=== PATIENT | female | born 1985 | race Caucasian/White ===

== ENCOUNTER → 2022-08-17 16:19 | Outpatient (BNVA) | payer BC, SELFPAY | PROVIDERS: Visit Provider Emergency Medicine | DX: N30.01 Acute cystitis with hematuria (principal) | CPT/HCPCS: 81000 ==

== ENCOUNTER → 2022-08-24 13:15 | Outpatient (BNVA) | payer BC, SELFPAY | PROVIDERS: Visit Provider Nurse Practitioner Family | DX: R10.9 Unspecified abdominal pain (principal); N12 Tubulo-interstitial nephritis, not specified as acute or chronic | CPT/HCPCS: 81000; 87086 ==

== ENCOUNTER → 2023-01-04 16:44 | Outpatient (BNVA) | payer BC, SELFPAY | PROVIDERS: Visit Provider Emergency Medicine | DX: J02.9 Acute pharyngitis, unspecified (principal) | CPT/HCPCS: 87071; 87880 ==

== ENCOUNTER 2023-03-16 17:34 | Emergency (ER) | payer BC, MEDICAID, SELFPAY ==
[2023-03-16 17:45] VITALS: BP 128/76; PULSE 100; RESP 18; TEMP 36.7; O2SAT 99; BMI 25.0
--- NOTE | 2023-03-16 17:52 | XRR_ITS ---
PROCEDURE INFORMATION: Exam: XR Chest Exam date and time: 03/16/2023 6:05 PM Age: 37 years old Clinical indication: Other: Numbness tingling TECHNIQUE: Imaging protocol: Radiologic exam of the chest. Views: 1 view. COMPARISON: No relevant prior studies available. FINDINGS: Lungs: Lungs are clear bilaterally. Pleural spaces: No pleural effusion. No pneumothorax. Heart/Mediastinum: The cardiac silhouette and mediastinal contours are unremarkable. Bones/joints: Unremarkable for age. XR/XR chest 1V portable [id number] IMPRESSION: Negative chest radiograph.
--- NOTE | 2023-03-16 17:52 | CTR_ITS ---
PROCEDURE INFORMATION: Exam: CT Head Without Contrast Exam date and time: 03/16/2023 6:13 PM Age: 37 years old Clinical indication: Numbness / parasthesia; Left; Additional info: Left arm numbness tingling TECHNIQUE: Imaging protocol: Computed tomography of the head without contrast. Sagittal and coronal reformatted images were created and reviewed. Radiation optimization: All CT scans at this facility use at least one of these dose optimization techniques: automated exposure control; mA and/or kV adjustment per patient size (includes targeted exams where dose is matched to clinical indication); or iterative reconstruction. REPORTING DATA: Count of CT and Cardiac NM exams in prior 12 months: This patient has received 0 known CTs and 0 known cardiac nuclear medicine studies in the 12 months prior to the current study. COMPARISON: No relevant prior studies available. RADIATION DOSE METRICS: Total DLP (mGy-cm): 1083.6 FINDINGS: Brain: No acute intracranial hemorrhage. No acute infarct. No intra-axial or extra-axial masses. George-white matter differentiation is preserved. No cerebral edema. No extra-axial fluid collections. No midline shift. No evidence for Chiari 1 malformation. Cerebral ventricles: No hydrocephalus. Paranasal sinuses: Visualized paranasal sinuses are clear. Mastoid air cells: Mastoid air cells are clear bilaterally. Orbital cavities: No acute abnormality in the visualized orbits. Bones/joints: No acute fracture. Soft tissues: The extracranial soft tissues are unremarkable. CT/CT head wo con* [id number] IMPRESSION: Negative CT scan of the brain.
--- NOTE | 2023-03-16 17:53 | ED_ITS ---
HPI - General Adult General: Chief complaint: General Medical Stated complaint: Stroke like symptoms Time Seen by Provider: 03/16/23 17:44 History of Present Illness: Patient presents to the ER from her PCPs office with complaints of left arm numbness and tingling from the shoulder down to the tips of her fingers. Patient stated this started approximately 5 days ago with her hand and fingers and then slowly worked its way up to the elbow and that to the shoulder. Patient reports no change in medicine. Patient does have a history of migraines is on migraine medicine. Patient has no other complaints at this time. Patient is found nothing to make this better or make this worse in the last 5 days. Patient is never had this before. Review of Systems General: Reports: 10 or more systems reviewed and unremarkable except in HPI and below PFSH ED 2 PFSH: Medical History Psychiatric care Physical Exam Const: COMMON NORMALS: no acute distress, average body habitus, patient oriented x3, no limitations, healthy appearing, alert and well nourished HENMT: COMMON NORMALS: normocephalic, atraumatic, hearing grossly normal bilaterally, external ears normal, Normal external nose present and moist oral mucous membranes HEAD & SCALP: normocephalic and atraumatic NOSE: Normal external nose present EXTERNAL EAR: Yes external ears normal Neck/C-Spine: COMMON NORMALS: full ROM, no lymphadenopathy, supple, no meningeal signs, no JVD and Thyroid normal THYROID: Thyroid normal Chest: COMMONS NORMALS: normal inspection of the chest and normal palpation of entire chest wall Resp: COMMON NORMALS: normal respiratory effort, No retractions, No use of accessory muscles and clear to auscultation bilaterally AUSCULTATION: clear to auscultation bilaterally Cardio: COMMON NORMALS: no JVD, regular rate, regular rhythm, S1 normal heart sound present, S2 normal heart sound present, No gallops present (Cardio), No clicks present (Cardio), No murmurs present (Cardio) and No rub (Cardio) RATE: regular rate RHYTHM: regular rhythm HEART SOUNDS: S1 normal heart sound present and S2 normal heart sound present GI: COMMON NORMALS: Normal to inspection, nondistended, normoactive bowel sounds present, Soft to palpation, non-tender, No hepatosplenomegaly present and no masses PALPATION: Yes Soft to palpation and Yes No hepatosplenomegaly present Neuro: COMMON NORMALS: patient oriented x3, CN's II-XII intact bilaterally, moves all extremities and no focal motor deficits SENSORIUM/ORIENTATION: Yes alert MENINGEAL SIGNS: Yes no meningeal signs SENSORY EXAM: Yes other (Patient complains of decreased sensation to her left upper extremity from t) Course Vital Signs: Vital signs: Vital Signs Temperature 98.0 F 03/16/23 17:45 Pulse Rate 88 03/16/23 18:37 Respiratory Rate 16 03/16/23 18:37 Blood Pressure 105/64 03/16/23 18:37 Pulse Oximetry 99 03/16/23 18:37 Oxygen Delivery Me thod Room Air 03/16/23 18:37 MDM - General Adult Medical Decision Making Patient presents to the ER with complaints of worsening numbness and tingling of her left upper extremity over the last 5 days. It started in her fingertips and woke this way up to his shoulder. Patient has never had this before. Patient underwent physical exam and lab work and imaging. All of which was essentially benign. Chest x-ray was negative, head CT was negative and lab work was unremarkable. This is highly unlikely anything to do with vascular occlusion and or stroke. This is most likely a peripheral neuropathy of some sort. Patient will be discharged home to follow-up with her PCP in the next 1 week. P atient may benefit from a referral to a neurologist and/or nerve conduction study. Patient will be placed on prednisone for 5 days. Differential Diagnosis Numbness and tingling, paresthesia, neuropathy, Medical Records I reviewed the patient's medical records. Lab Data I reviewed the patient's lab results. 03/16/23 18:03 03/16/23 18:03 Radiology Impressions Chest X-Ray 03/16/23 17:52 IMPRESSION: Negative chest radiograph. Head CT 03/16/23 17:52 IMPRESSION: Negative CT scan of the brain. Laboratory Results WBC 10.3 10^3/uL (4.0-10.0) H 03/16/23 18:03 RBC 4.82 10^6/uL (4.1-5.3) 03/16/23 18:03 Hgb 15.4 g/dL (11.5-15.3) H 03/16/23 18:03 Hct 45.5 % (37.0-47.0) 03/16/23 18:03 MCV 94.4 fl (81-99) 03/16/23 18:03 MCH 32.0 pg (28.0-34.0) 03/16/23 18:03 MCHC 33.8 g/dL (30.0-36.0) 03/16/23 18:03 RDW 12.4 % (12.1-15.1) 03/16/23 18:03 Plt Count 242 10^3/cmm (130-400) 03/16/23 18:03 MPV 9.2 fL (7.4-10.4) 03/16/23 18:03 Neut % (Auto) 48.4 % 03/16/23 18:03 Lymph % (Auto) 44.2 % 03/16/23 18:03 [place] % (Auto) 5.3 % 03/16/23 18:03 Eos % (Auto) 1.4 % 03/16/23 18:03 Baso % (Auto) 0.4 % 03/16/23 18:03 Neut # (Auto) 4.99 10^3/uL (1.8-7.7) 03/16/23 18:03 Lymph # (Auto) 4.6 10^3/uL (0.8-4.8) 03/16/23 18:03 [place] # (Auto) 0.6 10^3/uL (0.2-0.9) 03/16/23 18:03 Eos # (Auto) 0.1 10^3/uL (0.0-0.8) 03/16/23 18:03 Baso # (Auto) 0.0 10^3/uL (0.0-0.1) 03/16/23 18:03 Nucleated RBC % (auto) 0 % 03/16/23 18:03 Nucleated RBCs # 0.0 /100WBC 03/16/23 18:03 ESR 4 mm/hr (0-15) 03/16/23 18:03 Sodium 140 mmol/L (136-145) 03/16/23 18:03 Potassium 3.7 mmol/L (3.5-5.1) 03/16/23 18:03 Chloride 105 mmol/L (98-107) 03/16/23 18:03 Carbon Dioxide 23 mmol/L (22-29) 03/16/23 18:03 Anion Gap 15.7 (5-19) 03/16/23 18:03 BUN 8 mg/dL (6-20) 03/16/23 18:03 Creatinine 0.5 mg/dL (0.5-0.9) 03/16/23 18:03 GFR Calculation 138.8 mL/min (90-130) H 03/16/23 18:03 Glucose 85 mg/dL (65-115) 03/16/23 18:03 Calculated Osmolality 288 mOsm/kg (285-295) 03/16/23 18:03 Calcium 9.0 mg/dL (8.5-10.5) 03/16/23 18:03 Total Bilirubin 0.3 mg/dL (0.15-1.2) 03/16/23 18:03 AST 13 U/L (0-32) 03/16/23 18:03 ALT 10 U/L (0-33) 03/16/23 18:03 Alkaline Phosphatase 81 U/L (35-105) 03/16/23 18:03 C-Reactive Protein 3.0 mg/L (0.0-4.9) 03/16/23 18:03 Total Protein 6.8 g/dL (6.6-8.7) 03/16/23 18:03 Albumin 4.6 g/dL (3.5-5.2) 03/16/23 18:03 Globulin 2.2 g/dL (1.3-4.6) 03/16/23 18:03 EKG Data EKG 1: I personally reviewed and interpreted this EKG as follows: EKG interpretation date: 03/16/23 EKG interpretation time: 18:04 Prior EKG tracings: not available for review Interpretation: EKG showed ventricular rate of 84 beats minute, IN interval 151, QRS duration 106, QTc of 397, sinus rhythm with an incomplete right bundle branch block, no ST-T wave changes Computer generated interpretation: Chest X-Ray 03/16/23 17:52 IMPRESSION: Negative chest radiograph. Head CT 03/16/23 17:52 IMPRESSION: Negative CT scan of the brain. Discharge Plan Discharge Patient Disposition: Home Clinical Impression: Paresthesia of left arm, Neuropathy Condition: Stable Prescriptions: New prednisone 50 mg tablet 50 mg PO DAILY 7 Days Qty: 7 0RF No Action amitriptyline 10 mg tablet 10 mg PO DAILY baclofen 10 mg tablet 10 mg PO TID ondansetron HCl 4 mg tablet 4 mg PO Q8H PRN sumatriptan succinate 50 mg tablet See Rx Instructions PO .COMPLEX Rx Instructions: take 1 tab at onset of headache; if no relief may repeat 1 tab after at least 2 hrs; max = 4 tabs/24 hr PO buspirone 5 mg tablet 5 mg PO BID PRN (Reason: anxiety) 30 Days Qty: 60 3RF Slynd 4 mg (28) tablet 1 tab PO DAILY Discharge Orders: Discharge ED (Routine); Ordered 03/16/23 Ordered By: Haroldo San Patient Instructions: Peripheral Neuropathy (ED), Paresthesia (ED) Activity Restrictions/Additional Instructions: He had been worked up in the ER for this peripheral neuropathy/paresthesia in your left upper extremity. All your work-up was essentially unremarkable. This may be due to a nerve impairment issue. You will be placed on prednisone for the next 1 week to reduce any swelling and inflammation. Please follow-up with your family practice doctor when you finish your medication as you may benefit from a referral to a neurologist and/or nerve conduction study. Coding Level of Care Code ED Maintenance Mgr for Zahra Hathaway
--- NOTE | 2023-03-16 18:04 | ECG_ITS ---
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 Measurements Intervals [place] Rate: 84 P: 72 ME: 151 QRS: 65 QRSD: 106 T: 64 QT: 356 QTc: 421 Interpretive Statements SINUS RHYTHM INCOMPLETE RIGHT BUNDLE BRANCH BLOCK [90+ ms QRS DURATION, TERMINAL R IN V1/V2, 40+ ms S IN I/aVL/V4/V5/V6] No previous ECG available for comparison Electronically Signed On 03-17-2023 8:44:53 CDT by Oscar Morrow M.D. [id number]
[2023-03-16 18:10] LABS: Basophils % 0.4 %; Eosinophils # 0.1 10^3/uL (0.0-0.8); Eosinophils % 1.4 %; Hematocrit 45.5 % (37.0-47.0); Hemoglobin 15.4 g/dL (11.5-15.3); Lymphocytes # 4.6 10^3/uL (0.8-4.8); Lymphocytes % 44.2 %; Mean Corpuscular HGB Conc 33.8 g/dL (30.0-36.0); Mean Corpuscular Volume 94.4 fl (81-99); Mean Platelet Volume 9.2 fL (7.4-10.4); Monocytes # 0.6 10^3/uL (0.2-0.9); Monocytes % 5.3 %; Neutrophils # 4.99 10^3/uL (1.8-7.7); Neutrophils % 48.4 %; Nucleated Red Blood Cells % 0 %; Platelet Count 242 10^3/cmm (130-400); Red Blood Count 4.82 10^6/uL (4.1-5.3); Red Cell Distribution Width 12.4 % (12.1-15.1); White Blood Count 10.3 10^3/uL (4.0-10.0)
[2023-03-16 18:34] LABS: Alanine Aminotransferase 10 U/L (0-33); Albumin Level 4.6 g/dL (3.5-5.2); Alkaline Phosphatase 81 U/L (35-105); Anion Gap 15.7 (5-19); Aspartate Amino Transferase 13 U/L (0-32); Blood Urea Nitrogen 8 mg/dL (6-20); Carbon Dioxide 23 mmol/L (22-29); Chloride 105 mmol/L (98-107); Creatinine Clr Calc Pharmacy 149.3593; Globulin 2.2 g/dL (1.3-4.6); Glomerular Filtration Rate 138.8 mL/min (90-130); Glucose 85 mg/dL (65-115); Osmolality Calculated 288 mOsm/kg (285-295); Potassium 3.7 mmol/L (3.5-5.1); Sodium 140 mmol/L (136-145); Total Bilirubin 0.3 mg/dL (0.15-1.2); Total Protein 6.8 g/dL (6.6-8.7)
[2023-03-16 18:37] VITALS: BP 105/64; PULSE 88; RESP 16; O2SAT 99
[2023-03-16 18:41] LABS: Erythrocyte Sedimentation Rate 4 mm/hr (0-15)
[2023-03-16 19:14] VITALS: BP 107/68; PULSE 80; RESP 16; TEMP 36.6; O2SAT 96
== END 2023-03-16 19:17 | disposition home or self-care (01) ==
PROVIDERS: Emergency Provider Emergency Medicine
DX: R20.2 Paresthesia of skin (principal); G62.9 Polyneuropathy, unspecified
CPT/HCPCS: 36415; 70450; 71045; 80053; 85025; 85651; 86140; 93005; 99285

== ENCOUNTER 2023-08-20 14:14 | Emergency (ER) | payer BC, MEDICAID, SELFPAY ==
[2023-08-20 14:20] VITALS: BP 114/76; PULSE 97; TEMP 36.8; O2SAT 96; BMI 23.8
--- NOTE | 2023-08-20 15:31 | CTR_ITS ---
PROCEDURE INFORMATION: Exam: CT Head Without Contrast Exam date and time: 08/20/2023 3:44 PM Age: 37 years old Clinical indication: Pain; Dizziness; Headache not specified; Additional info: BAZAN, n/v, dizzy TECHNIQUE: Imaging protocol: Computed tomography of the head without contrast. Axial, coronal and sagittal reformatted images were created and reviewed. Radiation optimization: All CT scans at this facility use at least one of these dose optimization techniques: automated exposure control; mA and/or kV adjustment per patient size (includes targeted exams where dose is matched to clinical indication); or iterative reconstruction. REPORTING DATA: Count of CT and Cardiac NM exams in prior 12 months: This patient has received [address] and 0 known cardiac nuclear medicine studies in the 12 months prior to the current study. COMPARISON: CT head wo con* [id number] 03/16/2023 6:13 PM RADIATION DOSE METRICS: Total DLP (mGy-cm): 1079.84 FINDINGS: Brain: No CT evidence of acute intracranial hemorrhage or acute territorial infarction. No significant mass effect or midline shift. Basal cisterns patent. Cerebral ventricles: Normal in size and configuration. Paranasal sinuses: Unremarkable. No fluid levels. Mastoid air cells: Grossly unremarkable. Bones/joints: No acute osseous abnormality. Soft tissues: Grossly unremarkable. CT/CT head wo con* [id number] IMPRESSION: No CT evidence of acute intracranial pathology.
[2023-08-20 15:45] LABS: Basophils % 0.4 %; Eosinophils % 0.3 %; Hematocrit 47.9 % (36-47); Lymphocytes # 2.7 10^3/uL (0.8-4.8); Lymphocytes % 24.3 %; Mean Corpuscular HGB Conc 33.6 g/dL (30-55); Mean Corpuscular Hemoglobin 31.9 pg (27-33); Monocytes # 0.6 10^3/uL (0.2-0.9); Monocytes % 5.3 %; Neutrophils # 7.74 10^3/uL (1.8-7.7); Neutrophils % 69.4 %; Nucleated Red Blood Cells % 0 %; Platelet Count 234 10^3/cmm (157-399); Red Blood Count 5.04 10^6/uL (3.85-5.65); Red Cell Distribution Width 12.8 % (12.1-15.1); White Blood Count 11.13 10^3/uL (3.29-11.43)
[2023-08-20 16:03] LABS: Alanine Aminotransferase 17 U/L (0-33); Albumin Level 4.5 g/dL (3.5-5.2); Alkaline Phosphatase 85 U/L (35-105); Anion Gap 15.9 (5-19); Aspartate Amino Transferase 15 U/L (0-32); Blood Urea Nitrogen 8 mg/dL (6-20); Calcium 9.6 mg/dL (8.5-10.5); Carbon Dioxide 23 mmol/L (22-29); Chloride 106 mmol/L (98-107); Globulin 2.5 g/dL (1.3-4.6); Glomerular Filtration Rate 112.5 mL/min (90-130); Glucose 106 mg/dL (65-115); Osmolality Calculated 291 mOsm/kg (285-295); Potassium 3.9 mmol/L (3.5-5.1); Sodium 141 mmol/L (136-145); Total Bilirubin 0.5 mg/dL (0.15-1.2)
[2023-08-20] MEDS: sodium chloride 0.9% 1,000 ML 999 ML IV (16:21)
[2023-08-20] MEDS: dexamethasone 10 mg/mL INJ IVP (16:22)
[2023-08-20] MEDS: ondansetron 2 mg/ML SDV 2 mL 4 MG IVP (16:23)
[2023-08-20] MEDS: orphenadrine 30 mg/mL Inj 2 mL 60 MG IVP (16:24)
--- NOTE | 2023-08-20 17:13 | ED_ITS ---
HPI - Headache General: Chief Complaint: Headache Stated Complaint: N/V, headache Time Seen by Provider: 08/20/23 14:17 History of Present Illness: Patient is a 37-year-old female that presents to the emergency department with complaints of headache, nausea vomiting. Patient states onset of headache was 2 days ago. She is taken her prescription migraine medication without any relief. She has not been able to keep any fluids or meds down today. Patient denies fever chills, chest pain, shortness of breath, Diarrhea or constipation. She does report some abdominal discomfort but it is muscular in nature and it started after serial episodes of vomiting Review of Systems General: Reports: 10 or more systems reviewed and unremarkable except in HPI and below PFSH ED PFSH: Medical History Psychiatric care Physical Exam Const: COMMON NORMALS: no acute distress, average body habitus, patient oriented x3, no limitations, healthy appearing, alert and well nourished HENMT: COMMON NORMALS: normocephalic, atraumatic, hearing grossly normal bilaterally, external ears normal, Normal external nose present and moist oral mucous membranes HEAD & SCALP: normocephalic and atraumatic NOSE: Normal external nose present EXTERNAL EAR: Yes external ears normal Neck/C-Spine: COMMON NORMALS: full ROM, no lymphadenopathy, supple, no meningeal signs, no JVD and Thyroid normal THYROID: Thyroid normal Chest: COMMONS NORMALS: normal inspection of the chest and normal palpation of entire chest wall Resp: COMMON NORMALS: normal respiratory effort, No retractions, No use of accessory muscles and clear to auscultation bilaterally AUSCULTATION: clear to auscultation bilaterally Cardio: COMMON NORMALS: no JVD, regular rate, regular rhythm, S1 normal heart sound present, S2 normal heart sound present, No gallops present (Cardio), No clicks present (Cardio), No murmurs present (Cardio) and No rub (Cardio) RATE: regular rate RHYTHM: regular rhythm HEART SOUNDS: S1 normal heart sound present and S2 normal heart sound present GI: COMMON NORMALS: Normal to inspection, nondistended, normoactive bowel sounds present, Soft to palpation, non-tender, No hepatosplenomegaly present and no masses PALPATION: Yes Soft to palpation and Yes No hepatosplenomegaly present Neuro: COMMON NORMALS: patient oriented x3, CN's II-XII intact bilaterally, moves all extremities and no focal motor deficits SENSORIUM/ORIENTATION: Yes alert MENINGEAL SIGNS: Yes no meningeal signs SENSORY EXAM: Yes other (Patient complains of decreased sensation to her left upper extremity from t) Course Vital Signs: Vital signs: Vital Signs Temperature 98.2 F 08/20/23 14:20 Pulse Rate 78 08/20/23 17:47 Blood Pressure 104/61 08/20/23 18:30 Pulse Oximetry 93 08/20/23 18:30 Oxygen Delivery Me thod Room Air 08/20/23 17:47 MDM - Headache Medical Decision Making Patient was evaluated in the emergency department today for headache, nausea vomiting. Patient had concerns for dehydration due to serial episodes of vomiting. Here in the emergency department I treated her with a liter bolus of normal saline, Zofran, Decadron, Norflex. She had some Improvement but still felt pretty miserable. We obtained a CT of her head which was negative for acute intracranial pathology.There were no meningeal signs I then gave her a dose of Toradol and Compazine for her ongoing nausea and headache. Laboratory evaluation revealed no leukocytosis, anemias, thrombocytopenia, electrolyte abnormality. Migraine refractory to treatment. 6 mg Imitrex subcu given Her COVID test was negtive Patient is getting discharged home. She may return to the emergency department for new, concerning, worsening symptoms. She does have migraine medicines at home but we will send her with new prescription of Zofran. Lab Data 08/20/23 15:41 08/20/23 15:[address] 08/20/23 15:31 IMPRESSION: No CT evidence of acute intracranial pathology. Laboratory Results WBC 11.13 10^3/uL (3.29-11.43) 08/20/23 15:41 RBC 5.04 10^6/uL (3.85-5.65) 08/20/23 15:41 Hgb 16.10 g/dL (11.27-16.99) 08/20/23 15:41 Hct 47.9 % (36-47) H 08/20/23 15:41 MCV 95.0 fl (85-98) 08/20/23 15:41 MCH 31.9 pg (27-33) 08/20/23 15:41 MCHC 33.6 g/dL (30-55) 08/20/23 15:41 RDW 12.8 % (12.1-15.1) 08/20/23 15:41 Plt Count 234 10^3/cmm (157-399) 08/20/23 15:41 MPV 9.0 fL (7.4-10.4) 08/20/23 15:41 Neut % (Auto) 69.4 % 08/20/23 15:41 Lymph % (Auto) 24.3 % 08/20/23 15:41 [place] % (Auto) 5.3 % 08/20/23 15:41 Eos % (Auto) 0.3 % 08/20/23 15:41 Baso % (Auto) 0.4 % 08/20/23 15:41 Neut # (Auto) 7.74 10^3/uL (1.8-7.7) H 08/20/23 15:41 Lymph # (Auto) 2.7 10^3/uL (0.8-4.8) 08/20/23 15:41 [place] # (Auto) 0.6 10^3/uL (0.2-0.9) 08/20/23 15:41 Eos # (Auto) 0.0 10^3/uL (0.0-0.8) 08/20/23 15:41 Baso # (Auto) 0.0 10^3/uL (0.0-0.1) 08/20/23 15:41 Nucleated RBC % (auto) 0 % 08/20/23 15:41 Nucleated RBCs # 0.0 /100WBC 08/20/23 15:41 Sodium 141 mmol/L (136-145) 08/20/23 15:41 Potassium 3.9 mmol/L (3.5-5.1) 08/20/23 15:41 Chloride 106 mmol/L (98-107) 08/20/23 15:41 Carbon Dioxide 23 mmol/L (22-29) 08/20/23 15:41 Anion Gap 15.9 (5-19) 08/20/23 15:41 BUN 8 mg/dL (6-20) 08/20/23 15:41 Creatinine 0.6 mg/dL (0.5-0.9) 08/20/23 15:41 GFR Calculation 112.5 mL/min (90-130) 08/20/23 15:41 Glucose 106 mg/dL (65-115) 08/20/23 15:41 Calculated Osmolality 291 mOsm/kg (285-295) 08/20/23 15:41 Calcium 9.6 mg/dL (8.5-10.5) 08/20/23 15:41 Total Bilirubin 0.5 mg/dL (0.15-1.2) 08/20/23 15:41 AST 15 U/L (0-32) 08/20/23 15:41 ALT 17 U/L (0-33) 08/20/23 15:41 Alkaline Phosphatase 85 U/L (35-105) 08/20/23 15:41 Total Protein 7.0 g/dL (6.6-8.7) 08/20/23 15:41 Albumin 4.5 g/dL (3.5-5.2) 08/20/23 15:41 Globulin 2.5 g/dL (1.3-4.6) 08/20/23 15:41 Coronavirus 229E (PCR) Not detected (NOT DETECT) 08/20/23 16:30 SARS-CoV-2 (PCR) Not detected (NOT DETECT) 08/20/23 16:30 All radiology interpretation(s) finalized by discharge Discharge Plan Discharge Patient Disposition: Home Clinical Impression: Migraine Condition: Stable Prescriptions: New ondansetron 4 mg tablet,disintegrating 4 mg PO TID 5 Days Qty: 15 0RF No Action buspirone 5 mg tablet 5 mg PO BID PRN (Reason: anxiety) 30 Days Qty: 60 3RF amitriptyline 10 mg tablet 10 mg PO BEDTIME baclofen 10 mg tablet 10 mg PO TID ondansetron HCl 4 mg tablet 4 mg PO Q8H PRN (Reason: Nausea) sumatriptan succinate 50 mg tablet See Rx Instructions PO .COMPLEX Rx Instructions: take 1 tab at onset of headache; if no relief may repeat 1 tab after at least 2 hrs; max = 4 tabs/24 hr PO Slynd 4 mg (28) tablet 1 tab PO DAILY Discharge Orders: Discharge ED (Routine); Ordered 08/20/23 Ordered By: Avtar Miles McTeer Discharge Diet: Advance as tolerated Discharge Activity: Resume usual activity Patient Instructions: Headache - Migraine (Adult), Pain Management Activity Restrictions/Additional Instructions: Please return to the emergency department for new, concerning, worsening symptoms Coding Level of Care Code ED Certified Art Therapist for Zahra Hathaway
[2023-08-20 17:21] VITALS: BP 110/66; O2SAT 96
[2023-08-20 17:47] VITALS: BP 105/69; PULSE 78; O2SAT 94
[2023-08-20] MEDS: ketorolac 30 mg/mL INJ IVP (17:48)
[2023-08-20] MEDS: prochlorperazine 10 mg/2 mL Inj 5 MG IVP (17:52)
[2023-08-20 18:30] VITALS: BP 104/61; O2SAT 93
[2023-08-20 18:34] LABS: Adenovirus Not Detected (NOT DETECT); Chlamydia Pneumoniae Not Detected (NOT DETECT); Coronavirus 229E,HKU1,NL63,OC4 Not Detected (NOT DETECT); Human Metapneumovirus Not Detected (NOT DETECT); Human Rhinovirus/Enterovirus Not Detected (NOT DETECT); Influenza A Not Detected (NOT DETECT); Influenza A H1 Not Detected (NOT DETECT); Influenza A H1-2009 Not Detected (NOT DETECT); Influenza A H3 Not Detected (NOT DETECT); Influenza B Not Detected (NOT DETECT); Mycoplasma Pneumoniae Not Detected (NOT DETECT); Parainfluenza Virus Type 1 Not Detected (NOT DETECT); Parainfluenza Virus Type 2 Not Detected (NOT DETECT); Parainfluenza Virus Type 3 Not Detected (NOT DETECT); Parainfluenza Virus Type 4 Not Detected (NOT DETECT); Respiratory Syncytial Virus A Not Detected (NOT DETECT); Respiratory Syncytial Virus B Not Detected (NOT DETECT); SARS-COV-2 Not Detected (NOT DETECT)
[2023-08-20] MEDS: SUMAtriptan 6 mg/0.5 mL SDV SUBCUT (18:42)
[2023-08-20 19:20] VITALS: BP 104/61; O2SAT 93
== END 2023-08-20 19:22 | disposition home or self-care (01) ==
PROVIDERS: Emergency Provider Nurse Practitioner
DX: G43.909 Migraine, unspecified, not intractable, without status migrainosus (principal); Z11.52 Encounter for screening for COVID-19
CPT/HCPCS: 70450; 80053; 85025; 87635; 96361; 96372; 96374; 96375; 99285; J0780; J1100; J1885; J2360; J2405; J3030; J7030

== ENCOUNTER → 2023-08-22 15:15 | Outpatient (BNVA) | payer BC, MEDICAID, SELFPAY | PROVIDERS: Visit Provider Nurse Practitioner Family | DX: R39.9 Unspecified symptoms and signs involving the genitourinary system (principal); R31.9 Hematuria, unspecified; N12 Tubulo-interstitial nephritis, not specified as acute or chronic | CPT/HCPCS: 81000; 81025; 87086 ==

== ENCOUNTER → 2023-12-01 15:19 | Outpatient (BNVA) | payer BC, SELFPAY | PROVIDERS: Visit Provider Nurse Practitioner Family | DX: J02.8 Acute pharyngitis due to other specified organisms (principal); B97.89 Other viral agents as the cause of diseases classified elsewhere | CPT/HCPCS: 87071; 87880 ==